=== PATIENT | female | born 1965 | race Caucasian/White ===

== ENCOUNTER 2017-04-27 07:47 | Day surgery (SDC) | payer MEDICAID, OTHER ==
[2017-04-27 08:09] VITALS: BMI 28.4
[2017-04-27] MEDS ORDERED: Midazolam 2 MG/2 ML VIAL ONE (09:02)
[2017-04-27] MEDS ORDERED: Propofol 10 mg/ml Inj (20 ML) ONE (09:02)
[2017-04-27] MEDS ORDERED: Lactated Ringer's 1,000 ML IV ONE ×3 (09:21→11:45)
[2017-04-27] MEDS ORDERED: ceFAZolin IV 2 gm in Dextrose 1 GM/50 ML BAG IVPB ONE (09:31)
[2017-04-27] MEDS ORDERED: HYDROmorphone 0.5 mg/0.5 ml ISec IVP PRN (10:35)
--- NOTE | 2017-04-27 10:42 | PCM.SURG1 ---
Surgeon's Initial Post Op Note - Surgeon's Notes Surgeon: dr andrews Gwot Ia/[employer] Support: none Type of Anesthesia: General LMA Anesthesia Administered By: dr segura Pre-Operative Diagnosis: 51 yr with end thickening r/o polyp Operative Findings: see the op reoprt Post-Operative Diagnosis: same Operation Performed: d&c, hysterscopy Specimen/Specimens Removed: ecc. emc Estimated Blood Loss: EBL {In ML}: 20 Blood Products Given: N/A Drains Used: No Drains Post-Op Condition: Good Date of Surgery/Procedure: 04/27/17 Time of Surgery/Procedure: 11:00
--- NOTE | 2017-04-27 10:47 | PCM.OP ---
Operative Report - Operative Report Date of Surgery/Procedure: 04/27/17 Time of Surgery/Procedure: 10:00 Surgeon: dr andrews Comprehensive Advisor: none Anesthesia/Sedation: general anthesia /dr segura Pre-Operative Diagnosis: 51 yr with endometral thickining r/o polyp Post-Operative Diagnosis: same Indication for Surgery: endometrial thickening r/o polyp Operative Findings: prlofierative tissue Procedure/Operation Description: fter informed consent sterle spec inserted. ut 6 week size. ant lip of cervoix grasped with ten. gentle dilation done. hystersvcopy introduced. end roliferative seen on post wall. currtae dobe on all wall. small tissue. ecc done. tenaculum removed. pt tolerated it the procedure. no com. Estimated Blood Loss: 20 Complications: none Specimen: ecc. emc Discharge & Condition: stable
[2017-04-27 12:40] VITALS: BP 138/77; PULSE 67; RESP 20; TEMP 98; O2SAT 100
== END 2017-04-27 12:39 | disposition home or self-care (01) ==
LOC: C.SDS 07:47
PROVIDERS: ATTEND Obstetrics & Gynecology
DX: N84.0 Polyp of corpus uteri (principal); N92.6 Irregular menstruation, unspecified
CPT/HCPCS: 58558; 88305; J0690; J1100; J2250; J2405; J2704; J3010; J7120